=== PATIENT | female | born 1965 | race Caucasian/White ===

== ENCOUNTER 2020-07-01 14:04 | Inpatient (IN) | payer MEDICAID, SELFPAY ==
[2020-07-01] VITALS (8 sets, daily range): BP systolic 91–125; BP diastolic 60–94; PULSE 60–88; RESP 13–20; TEMP 36.3–36.8; O2SAT 89–99; BMI 29.2; BMI 29.3
--- NOTE | 2020-07-01 14:25 | HMH.EDGENADL ---
ED Disposition Clinical Impression: Hypokalemia Pneumonia Qualifiers: Pneumonia type: due to unspecified organism Laterality: unspecified laterality Lung location: unspecified part of lung Qualified Code(s): J18.9 - Pneumonia, unspecified organism CHF (congestive heart failure) Qualifiers: Heart failure type: unspecified Heart failure chronicity: unspecified Qualified Code(s): I50.9 - Heart failure, unspecified Disposition: Admitted As Inpatient Condition on Discharge: Fair Referrals: PCP,No [Primary Care Provider] - Time of Disposition: 16:13 - Critical Care Critical Care Time: No Attestation: On 07/01/20, the high probability of a clinically significant, sudden or life threatening deterioration of the following system(s) required my full and direct attention, intervention and personal management. The time I documented below is in addition to time spent performing reported procedures but includes the following listed in this critical care notation. Medical Decision Making - Medical Records Medical records reviewed: Yes: I reviewed the patient's medical records. - Keegan Inquiry Pt receiving controlled substance: No Vital Signs: 07/01/20 14:06 07/01/20 14:35 07/01/20 14:53 Temperature 98.2 F Temperature Source Oral Pulse Rate [Left Radial] 88 82 79 Respiratory Rate 13 Blood Pressure [Right Arm] 113/78 118/94 H 115/83 Blood Pressure Mean [Right Arm] 89 102 93 Blood Pressure Source [Right Arm] Automatic Cuff Automatic Cuff Automatic Cuff Blood Pressure Position [Right Arm] Sitting Sitting Sitting 02 Sat by Pulse Oximetry 89 L 95 98 Oxygen Delivery Method Room Air Nasal Cannula Nasal Cannula Oxygen Flow Rate (LPM) 2 2 07/01/20 15:07 07/01/20 15:33 Temperature Temperature Source Pulse Rate [Left Radial] 76 71 Respiratory Rate Blood Pressure [Right Arm] 115/83 125/85 Blood Pressure Mean [Right Arm] 93 98 Blood Pressure Source [Right Arm] Automatic Cuff Automatic Cuff Blood Pressure Position [Right Arm] Sitting Sitting 02 Sat by Pulse Oximetry 98 97 Oxygen Delivery Method Room Air Room Air Oxygen Flow Rate (LPM) - Lab Data Lab Results 07/01/20 14:29: VBG pH 7.36, VBG pCO2 47.6, VBG pO2 145.1 H, VBG HCO3 26.2, VBG Total CO2 27.6 H, VBG O2 Saturation 99.0 H, VBG Base Excess 0.7 07/01/20 14:29: WBC 13.4 H, RBC 5.31, Hgb 15.1, Hct 46.8, MCV 88.2, MCH 28.4, MCHC 32.2, RDW 14.5, Plt Count 162, MPV 9.8, Neut % (Auto) 86.4 H, Lymph % (Auto) 8.8 L, [place] % (Auto) 4.2, Eos % (Auto) 0.2, Baso % (Auto) 0.4, Neut # (Auto) 11.5 H, Lymph # (Auto) 1.2, [place] # (Auto) 0.6, Eos # (Auto) 0.0, Baso # (Auto) 0.1, Total Counted 100, Neutrophils % (Manual) 84 H, Band Neutrophils % 4.0, Lymphocytes % (Manual) 10, Monocytes % (Manual) 2, Platelet Estimate Normal, RBC Morphology Normal 07/01/20 14:29: Sodium 133 L, Potassium 2.9 L*, Chloride 95 L, Carbon Dioxide 33 H, Anion Gap 7.9, BUN 17, Creatinine 0.70, Estimated Creat Clear 112, Estimated GFR 87, Est GFR ( Amer) 106, Glucose 97, Calcium 9.5, Total Bilirubin 1.1, AST 35, ALT 15, Alkaline Phosphatase 89, Troponin I < 0.01, Total Protein 7.1, Albumin 3.6, Globulin 3.5 H, Albumin/Globulin Ratio 1.0 L 07/01/20 14:29: Procalcitonin 0.757 07/01/20 14:29: NT-Pro-B Natriuret Pep 2010 H 07/01/20 14:29: SARS-CoV-2 IgG Ab (Rapid) Negative, SARS-CoV-2 IgM Ab (Rapid) Negative Result diagrams: 07/01/20 14:29 07/01/20 14:29 Orders (Tests/Meds): ED MEDICATIONS Generic Name Dose Route Start Last Admin Trade Name Freq PRN Reason Stop Dose Admin Potassium Chloride/Water 100 mls @ 50 mls/hr 07/01/20 15:50 Potassium Chloride 20meq/100ml Ivpb IV 07/01/20 17:49 ONCE ONE Ceftriaxone Sodium 1 gm/ 50 mls @ 100 mls/hr 07/01/20 16:15 07/01/20 16:30 Sodium Chloride IV 07/15/20 16:14 100 mls/hr Q24H VERONIQUE Administration Protocol Azithromycin 500 mg/ Sodium 250 mls @ 250 mls/hr 07/01/20 16:15 Chloride IV 07/15/20 16:14 Q24H VERONIQUE Prot
--- NOTE | 2020-07-01 14:30 | XR_ITS ---
PROCEDURE: XR CHEST 2V CLINICAL HISTORY: cough COMPARISON: No exams were available for comparison FINDINGS: The cardiomediastinal silhouette and pulmonary vascularity are within normal limits. Increased markings are present in both lower lobes right more than left consistent with bilateral lower lobe pneumonia. No acute bony abnormalities. IMPRESSION: Bilateral lower lobe pneumonia Dictated by: Sudarshan Ortiz MD 07/01/2020 14:59 Sudarshan rOtiz MD in OV 07/01/2020 14:59
--- NOTE | 2020-07-01 14:37 | PC.NURSE ---
pt to rad
--- NOTE | 2020-07-01 14:44 | PC.NURSE ---
pt returned from rad.
[2020-07-01 14:48] LABS: Basophils # 0.1 K/mm3 (0-0.2); Basophils % 0.4 % (0.1-2.0); Eosinophils % 0.2 % (0.1-12.0); Hematocrit 46.8 % (37.0-47.0); Hemoglobin 15.1 g/dL (12.2-16.2); Lymphocytes # 1.2 K/mm3 (0.7-4.5); Lymphocytes % 8.8 % (10-50); Mean Corpuscular HGB Conc 32.2 g/dL (31.8-35.4); Mean Corpuscular Hemoglobin 28.4 pg (27.0-31.2); Mean Corpuscular Volume 88.2 fl (81-99); Mean Platelet Volume 9.8 fl (7.4-10.4); Monocytes # 0.6 K/mm3 (0.1-1.0); Monocytes % 4.2 % (1.7-9.3); Neutrophils # 11.5 K/mm3 (1.8-7.8); Neutrophils % 86.4 % (37.0-80.0); Platelet Count 162 K/mm3 (142-424); Red Blood Count 5.31 M/mm3 (4.20-5.40); Red Cell Distribution Width 14.5 % (11.5-17.5); White Blood Count 13.4 K/mm3 (4.8-10.8)
[2020-07-01 14:50] LABS: MANUAL DIFFERENTIAL MANUAL DIFFERENTIAL (MANUAL DIFF)
[2020-07-01 14:54] LABS: Chloride 95 mmol/L (98-107); Sodium 133 mmol/L (136-145)
[2020-07-01 14:57] LABS: Alanine Aminotransferase 15 U/L (12-78); Alkaline Phosphatase 89 U/L (38-126); Anion Gap 7.9 mEq/L (5-15); Aspartate Amino Transferase 35 U/L (14-36); Bilirubin,Total 1.1 mg/dl (0.2-1.3); Blood Urea Nitrogen 17 mg/dl (7-17); Calcium 9.5 mg/dl (8.4-10.2); Carbon Dioxide 33 mmol/L (22.0-30.0); Creatinine Clearance Estimated 112 mL/min (50-200); Estimated Glomerular Filt Rate 87 ml/min (>60); GFR (African American) 106 ML/MIN (>60); Glucose 97 mg/dl (74-100)
[2020-07-01 14:58] LABS: Albumin Level 3.6 g/dl (3.5-5.0); Globulin 3.5 g/dL (1.3-3.2); Total Protein,Serum 7.1 g/dl (6.3-8.2)
[2020-07-01 14:59] LABS: Lymphocytes % 10 % (10-50); Monocytes % 2 % (2-9); Neutrophils % 84 % (42-76); Platelet Estimate Normal; RBC Morphology Normal; Total Cells Counted 100
[2020-07-01 15:01] LABS: Potassium 2.9 mmoL/L (3.5-5.1)
[2020-07-01 15:14] LABS: Troponin I < 0.01 ng/ml (0.00-0.034)
[2020-07-01 15:15] LABS: Procalcitonin 0.757 ng/mL (0.0-2.0)
[2020-07-01 15:29] LABS: NT Pro Brain Natriuretic Pep. 2010 pg/mL (0-125)
[2020-07-01 15:34] LABS: Coronavirus 19 IgG Antibody Negative (Negative); Coronavirus 19 IgM Antibody Negative (Negative)
[2020-07-01 15:47] LABS: VBG Base Excess 0.7 mmol/L (-2.4-2.3); VBG HCO3 26.2 mmol/L (23-30); VBG PCO2 47.6 mmol/L (35-51); VBG PH 7.36 mmol/L (7.31-7.41); VBG PO2 145.1 mmol/L (28-40); VBG Total CO2 27.6 mmol/L (23-27)
--- NOTE | 2020-07-01 16:13 | CA_ITS ---
APPROVED REPORT EXAM: Comprehensive 2D, Doppler, and color-flow Echocardiogram Terminal Computer Operator: Dian De, RT(R) Ht: 5 ft 2 in Wt: 153lbs BSA: 1.71 BP: 125/85 mmHg Indications: low o2, CHF, COPD, SOB 2D Dimensions LVOT 1.62 cm (M/F) 1.5-2.5 M-Mode Dimensions RVDd 2.43 cm (0.9-2.6) LA Diam 3.41 cm (1.9-4.0) LVDd 4.22 cm (3.5-5.7) Ao Diam 2.30 cm (2.0-3.7) LVDs 2.79 cm (3.5-5.7) IVSd 0.82 cm (0.6-1.1) PWd 0.75 cm (0.6-1.1) EF (Teich) 63.10% FS 33.90% EDV (Teich) 79.50 mL ESV (Teich) 29.30 mL LV Diastology E Decel Time 210.00 (160-240 msec) E/A Ratio 0.9 MED E' 6.50 (< 7 cm/sec) E'/MED E' Ratio 10.35 (>14) LAT E' 10.10 (<10 cm/sec) E/LAT E' Ratio 6.66 (>14) Mitral Valve MV E Max Rich. 67.00 (40-130 cm/s) MV A Velocity 78.00 (40-130 cm/s) E/A Ratio 0.87 MV Decel. Time 210.00 (160-240 ms) MV PHT 62.00 ms Pulmonary Valve OR End VMAX 299.00 cm/s Left Ventricle Left atrium is mildly enlarged, left ventricle is normal size, mild concentric left ventricular hypertrophy, visually estimated ejection fraction 55% with no regional wall motion abnormality, diastolic parameters are inconclusive. Right Ventricle Right atrium and right ventricle are mildly enlarged with normal contractility. Aortic Valve Aortic valve is thickened and calcified leaflet continue to display mobility, there is no aortic stenosis or aortic insufficiency. Mitral Valve Mitral valve has mitral annular calcification, leaflets are minimally thickened, there is no mitral stenosis, there is mild mitral regurgitation. Tricuspid Valve Tricuspid valve is grossly normal, there is mild tricuspid regurgitation, tricuspid regurgitation jet velocity is inadequate for calculation of the right ventricular systolic pressure. Pulmonic Valve Pulmonic valve is poorly visualized. Great Vessels Aortic root is normal size. Pericardium No significant pericardial effusion noted. Conclusion 1. Biatrial enlargement, normal left ventricular size, mild concentric left ventricular hypertrophy, visually estimated ejection fraction 55% with no regional wall motion abnormality, diastolic parameters are inconclusive. 2. Mildly enlarged right ventricle with normal contractility. 3. Mild mitral and tricuspid regurgitation. 4. No significant pericardial effusion noted. Electronically signed by : Pablo White, 07/02/2020 05:21:37
--- NOTE | 2020-07-01 16:17 | PC.NURSE ---
Service Dr mckenna.
--- NOTE | 2020-07-01 17:44 | PC.NURSE ---
Pt arrived to the floor at this time'
--- NOTE | 2020-07-01 18:02 | PC.NURSE ---
called and verified with er about patient fluid rate. noted bnp was elevated, and fluids ordered at 150ml/hr. er doc stated to change rate to 75ml/hr
--- NOTE | 2020-07-01 18:52 | PC.NURSE ---
patient complaints of slight migraine but upon rentry to room patient asleep. required oxygen while awake but sats went up after falling asleep. lung sounds diminished. potassium and antibiotics going at this time. vitals stable
[2020-07-02] VITALS (8 sets, daily range): BP systolic 93–103; BP diastolic 57–70; PULSE 50–72; RESP 16–20; TEMP 36.6–37; O2SAT 95–99; BMI 29.7; BMI 29.8
[2020-07-02 06:21] LABS: Basophils % 0.1 % (0.1-2.0); Eosinophils # 0.1 K/mm3 (0.0-0.4); Eosinophils % 0.7 % (0.1-12.0); Hematocrit 41.8 % (37.0-47.0); Hemoglobin 13.7 g/dL (12.2-16.2); Lymphocytes # 1.8 K/mm3 (0.7-4.5); Lymphocytes % 17.2 % (10-50); Mean Corpuscular HGB Conc 32.7 g/dL (31.8-35.4); Mean Corpuscular Hemoglobin 29.8 pg (27.0-31.2); Mean Platelet Volume 9.5 fl (7.4-10.4); Monocytes # 0.6 K/mm3 (0.1-1.0); Monocytes % 5.9 % (1.7-9.3); Neutrophils # 7.9 K/mm3 (1.8-7.8); Neutrophils % 76.1 % (37.0-80.0); Platelet Count 173 K/mm3 (142-424); Red Cell Distribution Width 14.7 % (11.5-17.5); White Blood Count 10.3 K/mm3 (4.8-10.8)
[2020-07-02 06:39] LABS: Anion Gap 6.6 mEq/L (5-15); Blood Urea Nitrogen 17 mg/dl (7-17); Carbon Dioxide 37 mmol/L (22.0-30.0); Chloride 100 mmol/L (98-107); Creatinine Clearance Estimated 87 mL/min (50-200); Estimated Glomerular Filt Rate 75 ml/min (>60); GFR (African American) 90 ML/MIN (>60); Glucose 90 mg/dl (74-100); Potassium 4.6 mmoL/L (3.5-5.1); Sodium 139 mmol/L (136-145)
--- NOTE | 2020-07-02 07:38 | P.CONPHA_ITS ---
[facility] Pharmacy VTE Monitoring - Patient Demographics Admission date: 07/01/20 Report Date: 07/02/20 Time: 07:38 Allergies/Adverse Reactions: Patient Allergies No Known Allergies Allergy (Verified 07/01/20 14:30) Height: 1.52 m Weight: 68.748 kg Patient Problems: Current Active Problems Hypokalemia (Acute) Pneumonia (Acute) CHF (congestive heart failure) (Acute) - VTE Risk Labs: VTE Related Lab Results Hgb 13.7 g/dL (12.2-16.2) 07/02/20 05:48 Hct 41.8 % (37.0-47.0) 07/02/20 05:48 Plt Count 173 K/mm3 (142-424) 07/02/20 05:48 BUN 17 mg/dl (7-17) 07/02/20 05:48 Creatinine 0.80 mg/dl (0.52-1.04) 07/02/20 05:48 Estimated Creat Clear 87 mL/min (50-200) 07/02/20 05:48 Was VTE Risk Assessment Performed: Yes VTE Score: 3 VTE Risk Level: Low Risk Clinical Trial Participant: No - Prophylaxis VTE Prophylaxis Ordered?: Yes Types of VTE Prophylaxis: TEDS Knee High
--- NOTE | 2020-07-02 08:29 | PC.NURSE ---
upon initial assessment pt was extremely drowsy, difficulty keeping eyes open during conversations. pt rang out for something for a migraine , upon entering the room 5-10 mins later pt was sound asleep. IBU given for pain. lung sounds upon reassessment cta. bowel sounds active in all quads. nad noted will continue to monitor.
--- NOTE | 2020-07-02 09:01 | HMH.PHAINT ---
verified home dose of suboxone with home pharmacy
--- NOTE | 2020-07-02 10:11 | HMH.HP ---
*Admission Date: 07/01/20 *Chief complaint: Shortness of Breath *History of present illness: 55-year-old female patient presented to the emergency room after being at the [facility] clinic and feeling short of breath and instructed to be evaluated in the nearest ED by staff. She reports she has had increasing cough, shortness of breath, and continue to worsen for the past 2 weeks. She denies any fever/chills/body aches. nausea/vomiting/diarrhea or chest pain. Her troponins in the ED were negative, BNP greater than 2000. She is currently satting 94% on 2 L per nasal cannula and becomes short of breath while speaking. Potassium 2.9 and was replaced, this morning 4.6 Chest x-ray showing bilateral lower lobe pneumonia 2D echo: Conclusion 1. Biatrial enlargement, normal left ventricular size, mild concentric left ventricular hypertrophy, visually estimated ejection fraction 55% with no regional wall motion abnormality, diastolic parameters are inconclusive. 2. Mildly enlarged right ventricle with normal contractility. 3. Mild mitral and tricuspid regurgitation. 4. No significant pericardial effusion noted. Electronically signed by : Pablo White [facility] History Medical History: Reports:: Congestive Heart Failure, Diabetes Mellitus Type 2 (non medical), Hyperlipidemia, Hypertension Denies:: Diabetes Mellitus Type 1 *Have you ever received a pneumonia vaccine?: Yes *Have you received a flu vaccine this season?: No Other Medical History: Reports: Cataracts Other Surgeries: Yes: Cholecystectomy - *Social History Last grade of school completed: Some college Smoking Status: Current every day smoker # Packs/Day (cigarettes): 1 Alcohol Intake: never *Occupational Status:: disabled Housing: house Household Members: family, children *Travel in the last 8 weeks: None Family Hx:: Diabetes, Hyperlipidemia, Hypertension Review of Systems - Review of Systems Review of systems:: pertinent systems reviewed and negative unless documented below - Constitutional Reports fatigue - Eyes Denies blind spots, Denies blurry vision - ENT Denies abnormal hearing, Denies dizziness - *Cardiovascular Reports shortness of breath, Denies chest pain - *Respiratory Reports change in phlegm color, Reports cough, Reports shortness of breath - *Gastrointestinal Denies abdominal pain, Denies difficulty swallowing - *Musculoskeletal Denies back pain, Denies joint swelling - Integumentary/Breasts Denies bleeding lesions, Denies non-healing lesions - *Neurologic Reports weakness, Denies dizziness, Denies headache(s), Denies loss of vision - Psychiatric Denies lack of enjoyment, Denies mood swings - Endocrine Denies cold intolerance, Denies heat intolerance - Hematologic/Lymphatic Denies easy bleeding, Denies easy bruising - Allergic/Immunologic Denies GI upset with certain foods, Denies tongue swelling Meds Home Medications Medication Instructions Recorded Confirmed Type Albuterol Sulfate [Proair 1 puff IH Q4HP PRN 07/01/20 07/02/20 History Digihaler] Amlodipine Besylate [Norvasc 5mg 5 mg PO DAILY 07/01/20 07/01/20 History tablet] Buprenorphine HCl/Naloxone HCl 2 each SL DAILY 07/01/20 07/02/20 History [Buprenorphin-Naloxon 8-2 mg Sl] Furosemide [Furosemide 20mg Tab*] 20 mg PO DAILYP PRN 07/01/20 07/01/20 History Gabapentin 800 mg PO QID 07/01/20 07/01/20 History Spironolactone 50 mg PO DAILY 07/01/20 07/01/20 History Tizanidine HCl 4 mg PO TIDP PRN 07/01/20 07/02/20 History clonazePAM [Clonazepam] 1 mg PO BIDP PRN 07/01/20 07/02/20 History Fluoxetine HCl [Prozac] 40 mg PO BID 07/02/20 07/02/20 History Ropinirole HCl [Requip 1mg Tablet] 1 mg PO HS 07/02/20 07/02/20 History Allergies Allergy/AdvReac Type Severity Reaction Status Date / Time No Known Allergies Allergy Verified 07/01/20 14:30 Exam Vital signs and Labs for Last 24 Hours: Temp Pulse Resp BP Pulse Ox 98.6 F 56 L 2
--- NOTE | 2020-07-02 10:31 | HMH.CNCARD ---
History of Present Illness Consult date: 07/02/20 Requesting physician: Don Rothman Consult reason: shortness of breath Chief complaint: shortness of breath History of present illness: This is a 55-year-old white female who presented to the emergency department with complaints of shortness of breath and cough. The patient states that she had been having the shortness of breath and cough for 2 weeks and it continued to worsen. The patient states that her shortness of breath got severe. She states that she had an associated cough that is wet and hacking with productive yellow sputum. The patient states that she was more fatigued than normal and just not feeling herself. She denied any chest pain or pressure. She denied any fever, chills, nausea, vomiting, diarrhea. She did complain of some orthopnea as well with her shortness of breath. During her evaluation in the emergency room she was found to have a BNP greater than 2000. Her troponin is negative. She still continues to any chest pain or pressure. She states her shortness of breath has improved slightly but she is still really short of breath with exertion at this time. [facility] History I have reviewed the patient's past medical history: Yes Medical History: Reports:: Congestive Heart Failure, Diabetes Mellitus Type 2 (non medical), Hyperlipidemia, Hypertension Denies:: Diabetes Mellitus Type 1 *Have you ever received a pneumonia vaccine?: Yes *Have you received a flu vaccine this season?: No Other Medical History: Reports: Cataracts Other Surgeries: Yes: Cholecystectomy - *Social History Last grade of school completed: Some college Smoking Status: Current every day smoker # Packs/Day (cigarettes): 1 Alcohol Intake: never *Occupational Status:: disabled Housing: house Household Members: family, children *Travel in the last 8 weeks: None Family Hx:: Diabetes, Hyperlipidemia, Hypertension Meds Home Medications Medication Instructions Recorded Confirmed Type Albuterol Sulfate [Proair 1 puff IH Q4HP PRN 07/01/20 07/02/20 History Digihaler] Amlodipine Besylate [Norvasc 5mg 5 mg PO DAILY 07/01/20 07/01/20 History tablet] Buprenorphine HCl/Naloxone HCl 2 each SL DAILY 07/01/20 07/02/20 History [Buprenorphin-Naloxon 8-2 mg Sl] Furosemide [Furosemide 20mg Tab*] 20 mg PO DAILYP PRN 07/01/20 07/01/20 History Gabapentin 800 mg PO QID 07/01/20 07/01/20 History Spironolactone 50 mg PO DAILY 07/01/20 07/01/20 History Tizanidine HCl 4 mg PO TIDP PRN 07/01/20 07/02/20 History clonazePAM [Clonazepam] 1 mg PO BIDP PRN 07/01/20 07/02/20 History Fluoxetine HCl [Prozac] 40 mg PO BID 07/02/20 07/02/20 History Ropinirole HCl [Requip 1mg Tablet] 1 mg PO HS 07/02/20 07/02/20 History Allergies Allergy/AdvReac Type Severity Reaction Status Date / Time No Known Allergies Allergy Verified 07/01/20 14:30 Exam Vital signs and Labs for Last 24 Hours: Temp Pulse Resp BP Pulse Ox 98.6 F 56 L 20 97/58 L 95 07/02/20 08:00 07/02/20 08:00 07/02/20 08:00 07/02/20 08:00 07/02/20 08:00 Laboratory Results - last 24 hr 07/01/20 14:29: VBG pH 7.36, VBG pCO2 47.6, VBG pO2 145.1 H, VBG HCO3 26.2, VBG Total CO2 27.6 H, VBG O2 Saturation 99.0 H, VBG Base Excess 0.7 07/01/20 14:29: WBC 13.4 H, RBC 5.31, Hgb 15.1, Hct 46.8, MCV 88.2, MCH 28.4, MCHC 32.2, RDW 14.5, Plt Count 162, MPV 9.8, Neut % (Auto) 86.4 H, Lymph % (Auto) 8.8 L, [place] % (Auto) 4.2, Eos % (Auto) 0.2, Baso % (Auto) 0.4, Neut # (Auto) 11.5 H, Lymph # (Auto) 1.2, [place] # (Auto) 0.6, Eos # (Auto) 0.0, Baso # (Auto) 0.1, Total Counted 100, Neutrophils % (Manual) 84 H, Band Neutrophils % 4.0, Lymphocytes % (Manual) 10, Monocytes % (Manual) 2, Platelet Estimate Normal, RBC Morphology Normal 07/01/20 14:29: Sodium 133 L, Potassium 2.9 L*, Chloride 95 L, Carbon Dioxide 33 H, Anion Gap 7.9, BUN 17, Creatinine 0.70, Estimated Creat Clear 112, Estimated GFR 87, Est GFR ( Amer) 106, Glucose 97, Calcium 9.5, Total Bilirub
--- NOTE | 2020-07-02 12:41 | HMH.PULMCON ---
*Admission Date: 07/01/20 *Reason for consult:: Acute hypoxic respiratory failure *History of present illness: Ms. Kent is a 55-year-old female current smoker more than [id number] smoker she carries a diagnosis COPD on triple inhaler therapy not using any home oxygen, congestive heart failure presented to the ED with worsening respiratory failure and pulmonary was called for further management plans. Further questioning patient complains of worsening respiratory symptoms for the last month and she received 2 rounds of antibiotic so far intially levofloxacin and with cefdinir early May, patient symptoms improved for a while however started getting worse for the last 2 days with worsening cough and productive phlegm with yellowish in color. Patient denies any fevers or chills or any pleuritic chest pain with the cough. Patient also complains of worsening orthopnea and PND for the last week however denies any lower extremity swelling. Patient admits that she usually notices prominent right lower extremity swelling with volume overload during her prior episodes of CHF exacerbation Denies any sick contacts. Denies any personal history of blood clots. [facility] History Medical History: Reports:: Congestive Heart Failure, Diabetes Mellitus Type 2 (non medical), Hyperlipidemia, Hypertension Denies:: Diabetes Mellitus Type 1 *Have you ever received a pneumonia vaccine?: Yes *Have you received a flu vaccine this season?: No Other Medical History: Reports: Cataracts Other Surgeries: Yes: Cholecystectomy - *Social History Last grade of school completed: Some college Smoking Status: Current every day smoker # Packs/Day (cigarettes): 1 Alcohol Intake: never *Occupational Status:: disabled Housing: house Household Members: family, children *Travel in the last 8 weeks: None Family Hx:: Diabetes, Hyperlipidemia, Hypertension ROS - Review of Systems Review of systems:: pertinent systems reviewed and negative unless documented below - Cons Reports anorexia, Reports chills - Card Reports shortness of breath, Reports shortness of breath with activity, Reports shortness of breath when lying down - Resp Respiratory: Reports shortness of breath, Reports change in phlegm color, Reports cough, Reports excessive phlegm production, Denies coughing up blood, Denies pain on inspiration, Denies pain with cough, Reports cough with sputum production - GI Gastrointestingal: Reports: system reviewed and no additional complaints, except as docu - [place] Musculoskeletal: Reports system reviewed and no additional complaints, except as docu Meds Home Medications Medication Instructions Recorded Confirmed Type Albuterol Sulfate [Proair 1 puff IH Q4HP PRN 07/01/20 07/02/20 History Digihaler] Amlodipine Besylate [Norvasc 5mg 5 mg PO DAILY 07/01/20 07/01/20 History tablet] Buprenorphine HCl/Naloxone HCl 2 each SL DAILY 07/01/20 07/02/20 History [Buprenorphin-Naloxon 8-2 mg Sl] Furosemide [Furosemide 20mg Tab*] 20 mg PO DAILYP PRN 07/01/20 07/01/20 History Gabapentin 800 mg PO QID 07/01/20 07/01/20 History Spironolactone 50 mg PO DAILY 07/01/20 07/01/20 History Tizanidine HCl 4 mg PO TIDP PRN 07/01/20 07/02/20 History clonazePAM [Clonazepam] 1 mg PO BIDP PRN 07/01/20 07/02/20 History Fluoxetine HCl [Prozac] 40 mg PO BID 07/02/20 07/02/20 History Ropinirole HCl [Requip 1mg Tablet] 1 mg PO HS 07/02/20 07/02/20 History Allergies Allergy/AdvReac Type Severity Reaction Status Date / Time No Known Allergies Allergy Verified 07/01/20 14:30 Exam Radiology reports for Last 24 Hours: Chest x-ray from admission reviewed, did not show any acute pulmonary process however showed bilateral involving lower lobe airspace disease. Pulmonary vascular congestion also noted on the chest x-ray. - Constitutional Constitutional:: no acute distress, comfortable - HENMT Exam HENMT: normocephalic, atraumatic - Eye Exam Eyes:: normal appearance naomie
[2020-07-02 13:21] LABS: Adenovirus,PCR Not Detected (NotDetected); Bordetella Pertussis Not Detected (NotDetected); Chlamydophila Pneumoniae, PCR Not Detected (NotDetected); Coronavirus 19, PCR Not Detected (NotDetected); Coronavirus 229E Not Detected (NotDetected); Coronavirus NL63 Not Detected (NotDetected); Coronavirus OC43 Not Detected (NotDetected); Coronovirus HKU1,PCR Not Detected (NotDetected); Human Metapneumovirus Not Detected (NotDetected); Influenza A, PCR Not Detected (NotDetected); Influenza AH1, 2009 Not Detected (NotDetected); Influenza AH1, PCR Not Detected (NotDetected); Influenza AH3,PCR Not Detected (NotDetected); Influenza B, PCR Not Detected (NotDetected); Mycoplasma Pneumoniae, PCR Not Detected (NotDetected); Parainfluenza 1, PCR Not Detected (NotDetected); Parainfluenza 2, PCR Not Detected (NotDetected); Parainfluenza 3, PCR Not Detected (NotDetected); Parainfluenza 4, PCR Not Detected (NotDetected); Respiratory Syncytial Virus Not Detected (NotDetected); Rhinovirus/Enterovirus Not Detected (NotDetected)
[2020-07-02 13:44] LABS: D-Dimer 1.45 ug/mL (0.15-8.0)
--- NOTE | 2020-07-02 16:13 | PC.NURSE ---
NO ACUTE CHANGES TO NOTE FROM PREVIOUS ASSESSMENT. LUNG SOUNDS DIMINISHED IN THE BASES WITH CRACKLES AND SCATTERED WHEEZING HEARD THROUGHOUT. PATIENT HAS SLEPT MOST OF THE DAY. ALERT AND ORIENTED X4. USING BSC. TOLERATING REGULAR DIET. IV ACCESS X2. O2 REMAINS AT 2L/NC.
--- NOTE | 2020-07-02 19:03 | PC.NURSE ---
REPORT GIVEN TO Spencer ROSE RN
--- NOTE | 2020-07-02 20:25 | PC.NURSE ---
pt does not indicate pain in legs, rather cramps. MD project construction manager paged at 2016 for pt Tizanidine to be reordered, states she does not take Requip as it makes her nauseous.
--- NOTE | 2020-07-02 20:37 | PC.NURSE ---
Dr Simon returned page at 2030. ok to reorder pt tizanidine. MD aware of pt waxing and waning mental status/alertness this shift.
--- NOTE | 2020-07-02 23:20 | PC.NURSE ---
Pt's room air sat = 90%.
[2020-07-03] VITALS: BP 72/46; PULSE 55; RESP 12; TEMP 36.3; O2SAT 94; O2SAT 95
--- NOTE | 2020-07-03 00:34 | PC.NURSE ---
R/t pt recurrent lethargy throughout this shift, dayshift and previous nightshift. pt was asked if we could lock her purse up. pt agreeable at this time. witnessed with Spencer WILLOUGHBY and Maura WILLOUGHBY. Charge nurse Marcos Marlow RN notified as well.
--- NOTE | 2020-07-03 02:25 | PC.NURSE ---
Valeri Ackerman Rn spoke with Dr Simon. ok to dc heart monitor on pt at this time
[2020-07-03 04:00] VITALS: BP 114/69; PULSE 51; RESP 14; TEMP 36.3; O2SAT 98
[2020-07-03 05:00] VITALS: BMI 29.3
[2020-07-03 06:42] VITALS: PULSE 55; O2SAT 97
--- NOTE | 2020-07-03 06:50 | HMH.PNCARD ---
Subjective Date: 07/03/20 Time: 06:50 Principal diagnosis: CHF, Pneumonia Interval history: 55-year-old white female in bed in no acute distress. She states her shortness of breath has significantly improved overnight after the IV Lasix yesterday. She does note some muscle cramps in her legs which she feels is due to the diuresis. Exam Vital signs and Labs for Last 24 Hours: Temp Pulse Resp BP Pulse Ox 97.4 F L 55 L 14 114/69 97 07/03/20 04:00 07/03/20 06:42 07/03/20 04:00 07/03/20 04:00 07/03/20 06:42 Laboratory Results - last 24 hr 07/02/20 05:48: WBC 10.3, RBC 4.60, Hgb 13.7, Hct 41.8, MCV 91.0, MCH 29.8, MCHC 32.7, RDW 14.7, Plt Count 173, MPV 9.5, Neut % (Auto) 76.1, Lymph % (Auto) 17.2, [place] % (Auto) 5.9, Eos % (Auto) 0.7, Baso % (Auto) 0.1, Neut # (Auto) 7.9 H, Lymph # (Auto) 1.8, [place] # (Auto) 0.6, Eos # (Auto) 0.1, Baso # (Auto) 0.0 07/02/20 13:10: Chlamy pneumoniae PCR Not detected, Adenovirus (PCR) Not detected, B. pertussis DNA (PCR) Not detected, Coronavirus OC43 (PCR) Not detected, Coronavirus HKU1 (PCR) Not detected, Coronavirus 229E (PCR) Not detected, SARS-CoV-2 (PCR) Not detected, Coronavirus NL63 (PCR) Not detected, Human Metapneumovir PCR Not detected, Influenza A (H1) PCR Not detected, Influ A (H1N1/09) PCR Not detected, Influenza A (H3) PCR Not detected, Influenza Type A (PCR) Not detected, Influenza Type B (PCR) Not detected, M. pneumoniae (PCR) Not detected, Parainfluenza 1 (PCR) Not detected, Parainfluenza 2 (PCR) Not detected, Parainfluenza 3 (PCR) Not detected, Parainfluenza 4 (PCR) Not detected, RSV (PCR) Not detected, Entero/Rhino (PCR) Not detected 07/02/20 13:10: D-Dimer 1.45 I & O for Last 24 hours: Intake & Output 06/30/20 07/01/20 07/02/20 07/03/20 11:59 11:59 11:59 11:59 Intake Total 1536 / 1536 360 / 360 Output Total 850 / 850 Balance 1536 / 1536 -490 / -490 Weight 151 lb 9 oz 149 lb 8 oz Microbiology Reports for the Last 24 Hours: Microbiology 07/02/20 13:00 Sputum - Expectorated Sputum Gram Stain - Final 07/02/20 13:00 Sputum - Expectorated Sputum Sputum Culture - Final - Constitutional no acute distress - *Routine HEENT Exam Head: Present: normocephalic Eye: Present: EOMI, PERRL ENT: Present: mucous membranes moist - *Routine Neck Exam Present: supple. Absent: lymphadenopathy - *Routine Respiratory Exam Present: decreased breath sounds, diminished air movement - *Routine Cardiovascular Exam Present: RRR - *Routine Abdominal Exam Present: soft, normoactive bowel sounds. Absent: tenderness - *Routine Extremities Exam Absent: cyanosis, clubbing, edema - *Routine Skin Exam Present: warm. Absent: rash - *Routine Neurological Exam Present: alert, oriented X3 Progress Note: A&P (1) Elevated brain natriuretic peptide (BNP) level Status: Acute (2) Hypokalemia Status: Acute (3) Pneumonia Status: Acute (4) SOB (shortness of breath) Status: Acute (5) Acute on chronic diastolic CHF (congestive heart failure) Status: Acute Assessment and Plan for All Diagnoses:: 1. Acute on chronic diastolic congestive heart failure secondary to respiratory illness/pneumonia/exacerbation of COPD. Improved on IV Lasix therapy. In light of the patient receiving prednisone therapy for the next few days, would recommend that she take her Lasix daily in addition to her spironolactone 50 mg daily. Once the prednisone therapy has been discontinued then patient may return to using her Lasix as needed. 2. Hypokalemia, resolved 3. Pneumonia, per Dr. Rothman and Dr. Robert 4. Hypertension/hypertensive heart disease with concentric LVH on echocardiogram and normal LVEF. Unable to add beta-leatha due to bradycardia at baseline. Therefore would recommend continuing Norvasc along with spironolactone and as needed Lasix as noted above. Okay for discharge home from cardiology standpoint with follow-up in the office in 1 to 2 weeks.
[2020-07-03 07:11] LABS: Basophils % 0.1 % (0.1-2.0); Eosinophils % 0.5 % (0.1-12.0); Hematocrit 42.1 % (37.0-47.0); Hemoglobin 12.7 g/dL (12.2-16.2); Lymphocytes # 1.1 K/mm3 (0.7-4.5); Mean Corpuscular HGB Conc 30.2 g/dL (31.8-35.4); Mean Corpuscular Hemoglobin 27.7 pg (27.0-31.2); Mean Corpuscular Volume 91.8 fl (81-99); Monocytes # 0.4 K/mm3 (0.1-1.0); Monocytes % 5.4 % (1.7-9.3); Neutrophils % 76.9 % (37.0-80.0); Platelet Count 186 K/mm3 (142-424); Red Blood Count 4.59 M/mm3 (4.20-5.40); Red Cell Distribution Width 14.3 % (11.5-17.5); White Blood Count 6.5 K/mm3 (4.8-10.8)
[2020-07-03 07:15] LABS: Anion Gap 9.2 mEq/L (5-15); Blood Urea Nitrogen 21 mg/dl (7-17); Carbon Dioxide 36 mmol/L (22.0-30.0); Chloride 95 mmol/L (98-107); Chol/HDL Ratio 3.6 (1-3.5); Cholesterol 94 mg/dl (140-200); Creatinine Clearance Estimated 98 mL/min (50-200); Estimated Glomerular Filt Rate 87 ml/min (>60); GFR (African American) 106 ML/MIN (>60); Glucose 106 mg/dl (74-100); HDL Cholesterol 26 mg/dl (40-60); Potassium 3.2 mmoL/L (3.5-5.1); Sodium 137 mmol/L (136-145); Triglycerides 66 mg/dl (30-150); VLDL Cholesterol 13 mg/dL (0-40)
[2020-07-03 07:16] LABS: Magnesium 1.4 mg/dl (1.6-2.3)
[2020-07-03 07:23] VITALS: BMI 37.3
[2020-07-03 07:26] LABS: Direct LDL Cholesterol 49.14 mg/dL (100-129)
--- NOTE | 2020-07-03 07:40 | PC.NURSE ---
PT ASSESSED AT THIS TIME. BILATERAL LUNG SOUNDS INSPIRATORY WHEEZES AND DIMINISHED THROUGHOUT. PT STATES SHE HAS A MILD PICKETT BUT DENIES ANY NEED FOR MEDICATION. RATES PAIN 2/10 ON VERBAL SCALE. PT HAS AN INTERMITTENT COUGH THAT IS SOMETIMES PRODUCTIVE THAT IS CLEAR AND GRAYISH IN COLOR. EDEMA NOTED TO R ANKLE AND FOOT, NON PITTING. PT PURSE LOCKED IN DRAWER. PT HAD BEEN TAKEN HOME MEDICATION OF [place]. PT EDUCATED ON MEDICATION ADMINISTRATION WHILE ADMITTED IN HOSPITAL. PT VU. WILL CONTINUE TO OBSERVE.
[2020-07-03 07:42] VITALS: BP 95/55; PULSE 64; RESP 20; TEMP 36.3; O2SAT 94
[2020-07-03 08:00] VITALS: O2SAT 94
--- NOTE | 2020-07-03 09:52 | HMH.DCSUM ---
General - General Admission date:: 07/01/20 Discharge date: 07/03/20 HPI HPI: 55-year-old female patient presented to the emergency room after being at the [facility] and feeling short of breath and instructed to be evaluated in the nearest ED by staff. She reports she has had increasing cough, shortness of breath, and continue to worsen for the past 2 weeks. She denies any fever/chills/body aches. nausea/vomiting/diarrhea or chest pain. Her troponins in the ED were negative, BNP greater than 2000. She is currently satting 94% on 2 L per nasal cannula and becomes short of breath while speaking. Potassium 2.9 and was replaced, this morning 4.6 Chest x-ray showing bilateral lower lobe pneumonia 2D echo: Conclusion 1. Biatrial enlargement, normal left ventricular size, mild concentric left ventricular hypertrophy, visually estimated ejection fraction 55% with no regional wall motion abnormality, diastolic parameters are inconclusive. 2. Mildly enlarged right ventricle with normal contractility. 3. Mild mitral and tricuspid regurgitation. 4. No significant pericardial effusion noted. Electronically signed by : Pablo White, Hospital Course Hospital Course: Laboratory Tests 07/01/20 07/01/20 07/01/20 14:29 14:29 14:29 WBC 13.4 H RBC 5.31 Hgb 15.1 Hct 46.8 MCV 88.2 MCH 28.4 MCHC 32.2 RDW 14.5 Plt Count 162 MPV 9.8 Neut % (Auto) 86.4 H Lymph % (Auto) 8.8 L [place] % (Auto) 4.2 Eos % (Auto) 0.2 Baso % (Auto) 0.4 Neut # (Auto) 11.5 H Lymph # (Auto) 1.2 [place] # (Auto) 0.6 Eos # (Auto) 0.0 Baso # (Auto) 0.1 Total Counted 100 Neutrophils % (Manual) 84 H Band Neutrophils % 4.0 Lymphocytes % (Manual) 10 Monocytes % (Manual) 2 Platelet Estimate Normal RBC Morphology Normal D-Dimer VBG pH 7.36 VBG pCO2 47.6 VBG pO2 145.1 H VBG HCO3 26.2 VBG Total CO2 27.6 H VBG O2 Saturation 99.0 H VBG Base Excess 0.7 Sodium 133 L Potassium 2.9 L* Chloride 95 L Carbon Dioxide 33 H Anion Gap 7.9 BUN 17 Creatinine 0.70 Estimated Creat Clear 112 Estimated GFR 87 Est GFR ( Amer) 106 Glucose 97 Calcium 9.5 Magnesium Total Bilirubin 1.1 AST 35 ALT 15 Alkaline Phosphatase 89 Troponin I < 0.01 NT-Pro-B Natriuret Pep Total Protein 7.1 Albumin 3.6 Globulin 3.5 H Albumin/Globulin Ratio 1.0 L Triglycerides Cholesterol LDL Cholesterol Direct VLDL Cholesterol HDL Cholesterol Cholesterol/HDL Ratio Procalcitonin Chlamy pneumoniae PCR Adenovirus (PCR) B. pertussis DNA (PCR) Coronavirus OC43 (PCR) Coronavirus HKU1 (PCR) Coronavirus 229E (PCR) SARS-CoV-2 (PCR) Coronavirus NL63 (PCR) Human Metapneumovir PCR Influenza A (H1) PCR Influ A (H1N1/09) PCR Influenza A (H3) PCR Influenza Type A (PCR) Influenza Type B (PCR) M. pneumoniae (PCR) Parainfluenza 1 (PCR) Parainfluenza 2 (PCR) Parainfluenza 3 (PCR) Parainfluenza 4 (PCR) RSV (PCR) Entero/Rhino (PCR) SARS-CoV-2 IgG Ab (Rapid) SARS-CoV-2 IgM Ab (Rapid) 07/01/20 07/01/20 07/01/20 14:29 14:29 14:29 WBC RBC Hgb Hct MCV MCH MCHC RDW Plt Count MPV Neut % (Auto) Lymph % (Auto) [place] % (Auto) Eos % (Auto) Baso % (Auto) Neut # (Auto) Lymph # (Auto) [place] # (Auto) Eos # (Auto) Baso # (Auto) Total Counted Neutrophils % (Manual) Band Neutrophils % Lymphocytes % (Manual) Monocytes % (Manual) Platelet Estimate RBC Morphology D-Dimer VBG pH VBG pCO2 VBG pO2 VBG HCO3 VBG Total CO2 VBG O2 Saturation VBG Base Excess Sodium Potassium Chloride Carbon Dioxide Anion Gap BUN Creatinine Estimated Creat Clear Estimated GFR Est GFR (Afric
--- NOTE | 2020-07-03 09:56 | SW/DCPLANNER ---
I have spoke with this patient regarding discharge plans. Patient stated that she currently has home O2 thru [facility] in [facility]. Patient stated that she has portable tanks in her car. Patient has no further needs at this time. Patient will discharge home today.
--- NOTE | 2020-07-03 10:22 | P.PN_ITS ---
Internal Medicine - PN: Subj *Date: 07/03/20 *Time: 10:22 Interval history: No acute events overnight. Patient respiratory status slightly improved. Exam - Constitutional Constitutional:: no acute distress, comfortable - HENMT Exam HENMT: normocephalic, atraumatic - Eye Exam Eyes:: normal appearance both eyes and related structures - Neck Exam Neck:: thyroid normal, no lymphadenopathy - Respiratory Exam Respiratory:: able to speak in complete sentences, lungs clear, wheezing - Cardiovascular Exam Cardiac:: regular rhythm, S1, S2 - GI Exam GI:: soft, no hepatosplenomegaly - Skin Exam Skin: warm, no rash - Neurological Exam Neurological: alert, awake, normal cognition - Extremities Exam Extremities: no cyanosis, no clubbing, no edema - Psychiatric Exam Psychiatric: normal affect Assessment and Plan (1) Elevated brain natriuretic peptide (BNP) level Status: Acute Category: Medical Code(s): R79.89 - Other specified abnormal findings of blood chemistry (2) Hypokalemia Status: Acute Category: Medical Code(s): E87.6 - Hypokalemia (3) Pneumonia Status: Acute Qualifiers: Pneumonia type: due to unspecified organism Laterality: unspecified laterality Lung location: unspecified part of lung Qualified Code(s): J18.9 - Pneumonia, unspecified organism Category: Medical Code(s): J18.9 - Pneumonia, unspecified organism (4) SOB (shortness of breath) Status: Acute Category: Medical Code(s): R06.02 - Shortness of breath (5) Acute on chronic diastolic CHF (congestive heart failure) Status: Acute Category: Medical Code(s): I50.33 - Acute on chronic diastolic (congestive) heart failure - Assessment and plan all Dx Assessment and Plan for all problems:: #Acute hypoxic respiratory failure: #COPD exacerbation: #Community-acquired pneumonia: 55-year-old female COPD presented with worsening respiratory failure. Chest x- ray on admission did not show any acute pulmonary read except for evolving possible airspace disease in bilateral lower lobes. Evidence of pulmonary congestion noted. BNP elevated at 2009. Infectious work-up COVID-19 antibody screening resulted negative. Patient examination along with bibasilar crackles also have mild expiratory wheeze. Has been treated for CHF exacerbation/COPD exacerbation on this hospital admission with improvement in her symptoms. Patient recently received 2 dose of antibiotics with cefdinir and levofloxacin in the last 45 days resumed bronchitis. Patient respiratory status improved this morning. On 2 L nasal cannula saturating 96%. Auscultation still revealed mild expiratory wheeze, significantly improved from yesterday. Plan: -Patient can be discharged on levofloxacin and prednisone for a total of 5 days -Consider discharging the patient on LABA / LAMA combination with either Stiolto or Anoro or other preferred alternative -Continue albuterol inhaler as needed every 6 hours for shortness of breath or wheezing - Follow with cardio recommendations to manage CHF exacerbation -We will follow the patient in 4 to 6 weeks in pulmonary clinic with a full PFTs #Management of other medical conditions including electrolyte replacement as per primary team
[2020-07-03 12:00] VITALS: BP 104/68; PULSE 60; RESP 20; TEMP 36.4; O2SAT 94
--- NOTE | 2020-07-03 16:10 | PC.NURSE ---
pt wheelchaired off unit at this time x1 [facility] staff
== END 2020-07-03 16:10 | disposition home or self-care (01) | DRG 193 ==
LOC: ER 16:14 → 2ND 17:26
PROVIDERS: Internal Medicine Pulmonary Disease; Nurse Practitioner Family; Physician Assistant; Admitting Provider Emergency Medicine; Emergency Provider Emergency Medicine; Visit Provider Emergency Medicine
DX: J18.9 Pneumonia, unspecified organism (principal); I50.33 Acute on chronic diastolic (congestive) heart failure; J96.01 Acute respiratory failure with hypoxia; J44.1 Chronic obstructive pulmonary disease with (acute) exacerbation; I11.0 Hypertensive heart disease with heart failure; Z72.0 Tobacco use; E11.9 Type 2 diabetes mellitus without complications; E87.6 Hypokalemia; Z79.899 Other long term (current) drug therapy
CPT/HCPCS: 36415; 71046; 80048; 80053; 80061; 82803; 83735; 83880; 84145; 84484; 85007; 85025; 85378; 86328; 87040; 87205; 87581; 87633; 87798; 93306; 94640; 94761; 96365; 99284; J0456; J0574